=== PATIENT | male | born 1965 | race Caucasian/White ===

== ENCOUNTER 2019-03-08 00:37 | Emergency (ER) | payer MEDICAID ==
[~2019-03-08] VITALS: Ht 180.3 cm; Wt 93.0 kg
[~2019-03-08 00:37] MED LIST: COL250 PO; FLAGYL500 MG PO; KEFLEX500 MG PO; LAC PO; NORCO1 TA2 PO
[2019-03-08 00:46] VITALS: Ht 180.3 cm; Wt 93.0 kg
[2019-03-08 01:54] VITALS: BP 154/87
== END 2019-03-08 01:54 | disposition home or self-care (01) ==
LOC: ED 00:37
DX: L02.31 Cutaneous abscess of buttock (principal); B35.6 Tinea cruris; F17.210 Nicotine dependence, cigarettes, uncomplicated; Z98.890 Other specified postprocedural states